=== PATIENT | female | born 1955 ===

== ENCOUNTER 2019-05-06 18:24 | Inpatient (IN) | payer OTHER ==
[~2019-05-06] VITALS: Ht 154.9 cm; Wt 116.6 kg
[2019-05-30] MEDS ORDERED: LOSARTAN-HCTZ1 EAC2 PO (13:31)
[2019-05-30] MEDS ORDERED: PEPCID AC20 MG PO (13:31)
[2019-05-30] MEDS ORDERED: MERREM1 GM IV (13:31)
[2019-05-30] MEDS ORDERED: SLOW-MAG64 M1 PO (13:31)
[2019-05-30] MEDS ORDERED: Vitamin B-6 PO (13:31)
[2019-05-30] MEDS ORDERED: ERAXIS (WATER100 MG IV (13:31)
[2019-05-30] MEDS ORDERED: TOPROL XL50 M1 PO (13:31)
[2019-05-30] MEDS ORDERED: Neurin-Sl Tablet Sl SL (13:31)
[2019-05-30] MEDS ORDERED: KLOR-CON8 MEQ PO (13:31)
[2019-05-30] MEDS ORDERED: PRE PROTEIN1 EACH PO (13:31)
[2019-05-30] MEDS ORDERED: CARAFATE1 GM PO (13:31)
[2019-05-30] MEDS ORDERED: INTEGRA F CAPS1 EACH PO (13:31)
[2019-05-30] MEDS ORDERED: VANCOMYCIN HCL1 GM IV (13:31)
[2019-05-30] MEDS ORDERED: LOVENOX40 MG/0.4 SUBCUTANEO (13:31)
[2019-05-30] MEDS ORDERED: ULTRACET PO (13:38)
== END 2019-05-30 22:30 | DRG 372 ==
LOC: EDBD 18:24 → SURG 18:24 → SURH 18:24 → SURG 18:39 → SURH 05-10 08:51
PROVIDERS: ADMIT Colon & Rectal Surgery
PROC: 4A033R1 Measurement of Arterial Saturation, Peripheral, Percutaneous Approach (ICD-10-PCS; 2019-05-07)
PROC: BW21Y0Z Computerized Tomography (CT Scan) of Abdomen and Pelvis using Other Contrast, Unenhanced and Enhanced (ICD-10-PCS; 2019-05-08)
PROC: 3E0336Z Introduction of Nutritional Substance into Peripheral Vein, Percutaneous Approach (ICD-10-PCS; 2019-05-08)
PROC: 02HV33Z Insertion of Infusion Device into Superior Vena Cava, Percutaneous Approach (ICD-10-PCS; 2019-05-08)
PROC: BB24Y0Z Computerized Tomography (CT Scan) of Bilateral Lungs using Other Contrast, Unenhanced and Enhanced (ICD-10-PCS; 2019-05-08)
PROC: 0T9B70Z Drainage of Bladder with Drainage Device, Via Natural or Artificial Opening (ICD-10-PCS; 2019-05-08)
PROC: 0W9F30Z Drainage of Abdominal Wall with Drainage Device, Percutaneous Approach (ICD-10-PCS; principal; 2019-05-10)
PROC: 8E0ZXY6 Isolation (ICD-10-PCS; 2019-05-10)
PROC: 0W2FX0Z Change Drainage Device in Abdominal Wall, External Approach (ICD-10-PCS; 2019-05-13)
PROC: B54CZZZ Ultrasonography of Left Lower Extremity Veins (ICD-10-PCS; 2019-05-19)
DX: K65.1 Peritoneal abscess (principal); K57.20 Diverticulitis of large intestine with perforation and abscess without bleeding; E44.0 Moderate protein-calorie malnutrition; I82.4Z3 Acute embolism and thrombosis of unspecified deep veins of distal lower extremity, bilateral; N13.39 Other hydronephrosis; J90 Pleural effusion, not elsewhere classified; I11.9 Hypertensive heart disease without heart failure; E66.01 Morbid (severe) obesity due to excess calories; E88.09 Other disorders of plasma-protein metabolism, not elsewhere classified; Z88.5 Allergy status to narcotic agent; Z79.01 Long term (current) use of anticoagulants; Z74.01 Bed confinement status; R53.1 Weakness; Z16.12 Extended spectrum beta lactamase (ESBL) resistance; T83.092A Other mechanical complication of nephrostomy catheter, initial encounter; D72.828 Other elevated white blood cell count; E87.6 Hypokalemia; E83.42 Hypomagnesemia
CPT/HCPCS: 240